=== PATIENT | male | born 1970 | race Caucasian/White ===

== ENCOUNTER 2017-07-18 06:01 | Day surgery (SDC) | payer OTHER ==
[2017-07-18] MEDS ORDERED: DIPRIVAN 200 MG/20 ML IV ONE (06:02)
[2017-07-18] MEDS ORDERED: Lactated Ringers 1,000 ML IV SCH (06:30)
--- NOTE | 2017-07-18 07:50 | OP ---
SURGERY DATE/TIME: 07/18/2017 0700 PREOPERATIVE DIAGNOSES: 1) Anemia. 2) Heme-positive stool. POSTOPERATIVE DIAGNOSES: 1) Unable to do EGD due to the patient's inability to open his mouth wide enough to put the bite block in. 2) Mild diverticula. 3) Hemorrhoids. 4) Partial right hemicolectomy. 5) Normal colon otherwise. PROCEDURES: 1) EGD. 2) Colonoscopy. SURGEON: Dr. Gan. ANESTHESIA: MAC. Medications given by anesthesia department. HISTORY: The patient appraised of the risks of the procedure including the risk of perforation, phlebitis, untoward reaction to medication, bleeding and missed lesions. The patient verbalized his understanding and desired to have the procedure performed. DESCRIPTION OF PROCEDURE: The patient was given the medications by the anesthesia department. He had continuous pulse oximetry, ECG monitoring, intermittent blood pressure monitoring and tidal CO2 monitoring during the examination. He was placed in the left lateral decubitus position. He was unable to open his mouth wide enough to put the bite block in when he was awake and after sedating we were unable to open his mouth wide enough to put the bite block in and we therefore could not perform the EGD. Next, a digital rectal examination was performed and revealed normal anal sphincter tone, no masses and normal prostate. The flexible Olympus pediatric colonoscope was used to intubate the rectum. A view of the colon was developed sequentially to the right colon. There was the previous surgery which appeared to be partial right hemicolectomy. There was noted to be a few scattered sigmoid diverticula. There were noted to be internal hemorrhoids that were not actively bleeding. Otherwise the mucosa of the colon appeared to be normal. The scope was withdrawn from the patient who tolerated the procedure well and was sent back to OP recovery in good condition. The prep was noted to be fair to good.
[2017-07-18 09:39] VITALS: BP 140/92; PULSE 86
[2017-07-18 10:27] VITALS: O2SAT 97
--- NOTE | 2017-07-18 11:23 | XRAY ---
Exam: Double contrast upper GI exam from 07/18/2017. Total fluoroscopy time: 2.9 minutes. Comparison: None. Indication: Unsuccessful EGD, gastritis, possible ulcer, blood in stools. Gives history of prior colon problem many years ago with partial colon resection. Findings: The preliminary top bottom attaching machine operator film of the abdomen reveals an unremarkable bowel gas pattern. No organomegaly or suspicious abdominal calcifications are seen. The psoas muscle margins appear unremarkable bilaterally. The bones appear grossly intact. The patient was given effervescent gas granules with a small amount of water followed by high-density barium in the upright AP and LPO projections. The thoracic esophagus revealed a normal diameter, contour, and mucosal pattern. Later in the exam, WOODSON recumbent drinking views were obtained of the thoracic esophagus with thin liquid barium. The primary wave of esophageal motility appeared unremarkable. Again, the thoracic esophageal contour and caliber appeared unremarkable. I do not see any evidence of hiatal hernia or Schatzki's ring. The stomach appeared of average size. Gastric peristalsis was identified. There was no delay in gastric emptying. No gastric mass or ulcer is seen. The duodenal bulb is directed somewhat posteriorly. However, it distends well revealing no ulcer. The remainder of the duodenal sweep revealed a normal mucosal pattern. The third portion of the duodenum does cross the midline from right to left, but the ligament of Treitz appears relatively low and most of the jejunal small bowel loops beyond this are seen near the mid abdomen and within the right hemiabdomen. 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 Impression: 1. The site of the ligament of Treitz appears relatively low with respect to the proximal duodenum. Furthermore, most of the jejunal small bowel loops beyond this lie within the midabdomen and right hemiabdomen. 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 2. The remainder of the esophagus, stomach, duodenal bulb, and duodenal sweep appeared unremarkable. I saw no evidence of hiatal hernia, gastroesophageal reflux, or peptic ulcer disease.
== END 2017-07-18 10:20 | disposition home or self-care (01) ==
LOC: SDC 06:01
PROVIDERS: ATTEND Family Medicine
DX: D64.9 Anemia, unspecified (principal); R19.5 Other fecal abnormalities; K57.90 Diverticulosis of intestine, part unspecified, without perforation or abscess without bleeding; K64.4 Residual hemorrhoidal skin tags; K64.8 Other hemorrhoids; Z90.49 Acquired absence of other specified parts of digestive tract
CPT/HCPCS: 74246; J2704

== ENCOUNTER 2022-06-04 21:07 | Observation (INO) | payer MEDICARE ==
[2022-06-04] MEDS ORDERED: PROVENTIL Solution 2.5 MG/0.5 ML IH ONE ×2 (21:12→21:35)
[2022-06-04] MEDS ORDERED: Sodium Chloride 3 ML UD NEBULES IH ONE (21:12)
[2022-06-04] MEDS ORDERED: solu-MEDROL 125 MG, Sterile H2O 10 ml 2 ML IV ONE ×2 (21:15)
[2022-06-04] MEDS ORDERED: BRETHINE 1 MG/ML SQ ONE (21:16)
[2022-06-04] MEDS ORDERED: Sterile H2O 10 ml IJ ONE (21:19)
[2022-06-04] MEDS ORDERED: solu-MEDROL ONE (21:20)
[2022-06-04] MEDS ORDERED: BRETHINE 1 MG/ML ONE (21:20)
[2022-06-04 21:44] LABS: Hematocrit 49.2 % (42-50); Hemoglobin 15.9 g/dL (12.5-18.0); Mean Cell Volume 97.4 fL (78-100); Mean Corpuscular Hemoglobin 31.5 pg (26-32); Mean Corpuscular Hgb Concent. 32.3 g/dL (32-36); Mean Platelet Volume 10.6 fL (7.5-11.0); Platelet Count 289 x10^3/uL (150-450); Red Blood Count 5.05 x10^6/uL (4.1-5.6); Red Cell Distribution Width 13.3 % (11.5-14.0)
[2022-06-04] MEDS ORDERED: Sodium Chloride 3 ML UD NEBULES IH SCH (21:45)
[2022-06-04 21:50] LABS: ALBUMIN 4.9 g/dL (3.5-5.0); ALKALINE PHOSPHATASE 105 U/L (38-126); ANION GAP 18.1 MEQ/L (5-15); BLOOD UREA NITROGEN 14 mg/dL (9-20); CHLORIDE 102 mmol/L (98-107); Calcium 9.9 mg/dL (8.4-10.2); Carbon Dioxide 25 mmol/L (22-30); Creatinine 1 1.16 mg/dL (0.66-1.25); EST GLOMERULAR FILTRATION RATE > 60.0 ML/MIN; Glucose 155 mg/dL (74-106); Potassium 4.7 mmol/L (3.5-5.1); SGOT/AST 36 U/L (17-59); SGPT/ALT 22 U/L (0-50); SODIUM 140 mmol/L (137-145); Total Protein 9.3 g/dL (6.3-8.2)
[2022-06-04 21:53] LABS: D-DIMER QUANTITATIVE 0.25 mg/L (0.0-0.50); PROTIME 10.9 SECONDS (9.4-12.5); PTT 28.1 SECONDS (25.1-36.5); White Blood Count 25.5 x10^3/uL (4.0-10.5)
[2022-06-04 22:02] LABS: NT PRO BNPII 107 pg/mL (<300); TROPONIN < 0.012 ng/mL (0.000-0.034)
[2022-06-04 22:34] LABS: INFLUENZA A NEGATIVE (NEGATIVE); INFLUENZA B NEGATIVE (NEGATIVE); RESPIRATORY SYNCTIAL VIRUS NEGATIVE (NEGATIVE); SARS-CoV-2 Xpert Express NEGATIVE (NEGATIVE)
[2022-06-04] MEDS ORDERED: Sodium Chloride 0.9% 1000 ML 1,000 ML IV STA (22:57)
--- NOTE | 2022-06-04 23:00 | ERPHSYRPT ---
- History of Present Illness Source: patient, family Exam Limitations: clinical condition Patient Subjective Stated Complaint: pt has been increasingly short of breath today with audible wheezes. Triage Nursing Assessment: pt alert and oriented, answers questions approp with single word answers. pt back to room per wheelchair, transfers to stretcher with assist of 1. pt short of breath with accessory muscle use noted. lung sounds coarse bilat with insp and exp wheezes noted, skin warm and dry Physician History: 52 yo WM w h/o Asthma since 21 presents w dyspnea x 1 day. Pt w sats of 75% on RA upon arrival. He saw his PCP today and was prescribed prednisone which he has not filled but took 20mg today from old Rx. He denies cough/coryza/ fever/melena/hematochezia/N/V but does have some diarrhea. Timing/Duration: yesterday Activities at Onset: rest Severity of Dyspnea-Max: severe Severity of Dyspnea-Current: severe Possible Cause: occasional episodes Modifying Factors: Improves With: activity, oxygen Associated Symptoms: denies symptoms Allergies/Adverse Reactions: Penicillins Allergy (Mild, Verified 06/04/22 21:31) Rash Home Medications: Levothyroxine Sodium 150 Mcg [Synthroid 150 Mcg] 150 mcg PO DAILY 08/02/13 [History] Ferrous Sulfate [Iron] 325 mg PO DAILY 07/15/17 [History] Folic Acid 1 mg [Folate 1 mg] 1 mg PO DAILY 07/15/17 [History] Lisinopril 10 mg [Zestril 10 MG] 10 mg PO DAILY 07/15/17 [History] Hx Tetanus, Diphtheria Vaccination/Date Given: Yes Hx Influenza Vaccination/Date Given: Yes Hx Pneumococcal Vaccination/Date Given: No Immunizations Up to Date: Yes Travel Risk - International Travel Have you traveled outside of the country in past 3 weeks: No - Coronavirus Screening Are you exhibiting any of the following symptoms?: No Close contact with a COVID-19 positive Pt in past 14-21 Days: No - Vaccine Status Have you recieved a Covid-19 vaccination: Yes [employer] Damage Clerk: Moderna - Vaccination Dates Date of 2cond Vaccination (if applicable): 2020 - Review of Systems Constitutional: No Symptoms Eyes: No Symptoms Ears, Nose, & Throat: No Symptoms Respiratory: No Symptoms, Dyspnea Cardiac: No Symptoms Abdominal/Gastrointestinal: No Symptoms Genitourinary Symptoms: No Symptoms Musculoskeletal: No Symptoms Skin: No Symptoms Neurological: No Symptoms Psychological: No Symptoms Endocrine: No Symptoms Hematologic/Lymphatic: No Symptoms Immunological/Allergic: No Symptoms - Past Medical History Pertinent Past Medical History: Yes Neurological History: No Pertinent History ENT History: No Pertinent History Cardiac History: Hypertension Respiratory History: No Pertinent History Endocrine Medical History: Hyperthyroidism Musculoskeletal History: No Pertinent History GI Medical History: No Pertinent History, Other History: No Pertinent History Psycho-Social History: No Pertinent History Male Reproductive Disorders: No Pertinent History Other Medical History: anemia,hypothroid, psoriatic arthritis - Past Surgical History Past Surgical History: Yes Neuro Surgical History: No Pertinent History Cardiac: No Pertinent History Respiratory: No Pertinent History Gastrointestinal: Colon Resection Genitourinary: No Pertinent History Musculoskeletal: Orthopedic Surgery Male Surgical History: No Pertinent History Other Surgical History: colon surgery r/t blockage at age 6,knee surgery,neck surgery - Social History Smoking Status: Never smoker Exposure to second hand smoke: No Drug Use: none Patient Lives Alone: Yes - Nursing Vital Signs Nursing Vital Signs: Initial Vital Signs Temperature 97.2 F 06/04/22 21:11 Pulse Rate 129 H 06/04/22 21:11 Respiratory Rate 24 06/04/22 21:11 Blood Pressure 148/135 06/04/22 21:11 O2 Sat by Pulse Oximetry 75 L 06/04/22 21:11 Pain Scale Pain Intensity 0 Tachy/Severely hypoxic - Physical Exam General Appearance: severe distress Eye Exam: PERRL/EOMI, eyes nml inspection Ears, Nose, Throat Exam: hearing grossly normal, normal ENT inspection, normal pharynx Neck Exam: normal inspection, non-tender, supple, full range of motion, No Brudzinski, No Kernig's, No meningismus Respiratory Exam: respiratory distress (severe), prolonged expirations, wheezing (Expiratory wheezes all lung lields) Cardiovascular/Chest Exam: tachycardia, No murmur Abdominal/Gastrointestinal Exam: soft, normal bowel sounds, No tenderness Extremity Exam: non-tender, normal range of motion, normal inspection, normal capillary refill Peripheral Pulses Exam: carotid (R): 2+, carotid (L): 2+ Neurologic Exam: alert, oriented x 3, cooperative, electroformer II-XII nml as tested, normal mood/affect, nml cerebellar function, nml station & gait, sensation nml, No motor deficits, No sensory deficit Skin Exam: normal color, warm, dry Lymphatic Exam: No adenopathy SpO2 Interpretation: hypoxic SpO2: 95 O2 Delivery: Oxymask - Course Nursing assessment & vital signs reviewed: Yes EKG Interpreted by Me: RATE (Sinus tach/Normal QT-QTc/Low voltage/Diffuse Twave abnormality/No acute ST segment changes/LAFB) - Radiology Exams Chest X-ray Interpretation: Interpreted by me (Hyperinflated/Nothing acute) Ordered Tests: Active Orders 24 hr Category Date Time Status IV Insertion STAT Care 06/04/22 21:25 Active IV Insertion-2nd Peripheral STAT Care 06/04/22 21:25 Active CHEST 1 VIEW (PORTABLE) Stat Exams 06/04/22 21:37 Taken CHEST WITH CONTRAST [CT] Stat Exams 06/04/22 23:14 Completed ABG [ARTERIAL BLOOD GASES] Stat Lab 06/04/22 23:33 Completed CBC W DIFF Stat Lab 06/04/22 21:39 Completed CMP Stat Lab 06/04/22 21:39 Completed D-DIMER QUANTITATIVE Stat Lab 06/04/22 21:39 Completed Lactic Acid Stat Lab 06/04/22 22:00 Completed Lactic Acid Stat Lab 06/05/22 00:11 Completed Manual Differential NC Stat Lab 06/04/22 21:39 Completed NT PRO BNPII Stat Lab 06/04/22 21:39 Completed PROTIME WITH INR Stat Lab 06/04/22 21:39 Completed PTT Stat Lab 06/04/22 21:39 Completed TROPONIN Q4H Lab 06/04/22 21:39 Completed TROPONIN Q4H Lab 06/05/22 01:45 Ordered TROPONIN Q4H Lab 06/05/22 05:45 Ordered Respiratory Therapy Assessment DAILY RT 06/04/22 21:10 Active Medication Summary Generic Name Dose Route Start Last Admin Trade Name Freq PRN Reason Stop Dose Admin Sodium Chloride 12 ml 06/04/22 21:45 06/04/22 21:40 Sodium Cl For Inhalation 3 Ml Ud Nebule IH 07/04/22 21:44 10 ml UD FABIAN Administration Discontinued Medications Generic Name Dose Route Start Last Admin Trade Name Freq PRN Reason Stop Dose Admin Albuterol Sulfate Confirm 06/04/22 21:12 Albuterol Solution 2.5 Mg/0.5 Ml Ud Solution Administered 06/04/22 21:13 Dose 10 mg IH .STK-MED ONE Albuterol Sulfate 10 mg 06/04/22 21:35 06/04/22 21:40 Albuterol Solution 2.5 Mg/0.5 Ml Ud Solution IH 06/04/22 21:36 10 mg STAT ONE Administration Methylprednisolone Sodium 0 mg 06/04/22 21:15 06/04/22 21:20 Succinate 125 mg/ Sterile IV 06/04/22 21:16 125 mg Water 2 ml STAT ONE Administration Sodium Chloride 1,000 mls @ 999 mls/hr 06/04/22 22:57 06/04/22 23:22 Sodium Chloride 0.9% 1000 Ml IV 06/04/22 23:57 999 mls/hr .Q1H1M STA Administration Sodium Chloride Confirm 06/04/22 23:21 Sodium Chloride 0.9% 1000 Ml Administered 06/04/22 23:22 Dose 1,000 mls @ ud .ROUTE .STK-MED ONE Methylprednisolone Sodium Succinate Confirm 06/04/22 21:20 Methylprednis Sod Succ 125 Mg/2 Ml Vial Administered 06/04/22 21:21 Dose 125 mg .ROUTE .STK-MED ONE Sodium Chloride Confirm 06/04/22 21:12 Sodium Cl For Inhalation 3 Ml Ud Nebule Administered 06/04/22 21:13 Dose 12 ml IH .STK-MED ONE Sterile Water Confirm 06/04/22 21:19 Water For Injection,Sterile 10 Ml Vial Administered 06/04/22 21:20 Dose 10 ml IJ .STK-MED ONE Terbutaline Sulfate 0.25 mg 06/04/22 21:16 06/04/22 21:21 Terbutaline Sulfate 1 Mg/Ml Vial SQ 06/04/22 21:17 0.25 mg STAT ONE Administration Terbutaline Sulfate Confirm 06/04/22 21:20 Terbutaline Sulfate 1 Mg/Ml Vial Administered 06/04/22 21:21 Dose 1 mg .ROUTE .STK-MED ONE Lab/Rad Data: Laboratory Result Diagrams 06/04/22 21:39 06/04/22 21:39 Laboratory Results 06/05/22 06/04/22 06/04/22 Range/Units 00:11 23:33 22:00 WBC (4.0-10.5) x10^3/uL RBC (4.1-5.6) x10^6/uL Hgb (12.5-18.0) g/dL Hct (42-50) % MCV (78-100) fL MCH (26-32) pg MCHC (32-36) g/dL RDW (11.5-14.0) % Plt Count (150-450) x10^3/uL MPV (7.5-11.0) fL Segmented Neutrophils (36.-66.) % Lymphocytes (Manual) (24-44) % Monocytes (Manual) (0.0-12.0) % Eosinophils (Manual) (0.00-3.0) % Basophils (Manual) (0.0-1.0) % Platelet Estimate (NORMAL) RBC Morphology PT (9.4-12.5) SECONDS INR (0.8-3.0) APTT (25.1-36.5) SECONDS D-Dimer (0.0-0.50) mg/L Puncture Site LEFT RADIAL pCO2 44 (35-45) mmHg pO2 120 H (75-100) mmHg Base Excess -2.3 L (-2.0-2.0) O2 Saturation 96.3 (94-100) g/dF ABG pH 7.34 L (7.35-7.45) ABG HCO3 23.7 (22-28) ABG O2 Sat (Measured) 99.2 (95-100) % Irwin Test YES A-a Gradient 253 a/A Ratio 0.32 Hemoglobin 15.8 Carboxyhemoglobin 2.2 (0.0-6.9) % THgb Methemoglobin 0.8 L (1.4-1.5) % Temperature 37.0 C POC O2 Flow Rate 60 % Sodium (137-145) mmol/L Potassium 4.2 (3.5-5.1) mmol/L Chloride (98-107) mmol/L Carbon Dioxide (22-30) mmol/L Anion Gap (5-15) MEQ/L BUN (9-20) mg/dL Creatinine (0.66-1.25) mg/dL Estimated GFR ML/MIN Glucose (74-106) mg/dL Lactic Acid 2.0 2.4 H (0.4-2.0) Calcium (8.4-10.2) mg/dL Total Bilirubin (0.2-1.3) mg/dL AST (17-59) U/L ALT (0-50) U/L Alkaline Phosphatase (38-126) U/L Troponin I (0.000-0.034) ng/mL NT-Pro-B Natriuret Pep (<300) pg/mL Serum Total Protein (6.3-8.2) g/dL Albumin (3.5-5.0) g/dL Influenza Type A Ag (NEGATIVE) Influenza Type B Ag (NEGATIVE) RSV (PCR) (NEGATIVE) SARS-CoV-2 (PCR) (NEGATIVE) 06/04/22 06/04/22 06/04/22 Range/Units 21:50 21:39 21:39 WBC (4.0-10.5) x10^3/uL RBC (4.1-5.6) x10^6/uL Hgb (12.5-18.0) g/dL Hct (42-50) % MCV (78-100) fL MCH (26-32) pg MCHC (32-36) g/dL RDW (11.5-14.0) % Plt Count (150-450) x10^3/uL MPV (7.5-11.0) fL Segmented Neutrophils (36.-66.) % Lymphocytes (Manual) (24-44) % Monocytes (Manual) (0.0-12.0) % Eosinophils (Manual) (0.00-3.0) % Basophils (Manual) (0.0-1.0) % Platelet Estimate (NORMAL) RBC Morphology PT 10.9 (9.4-12.5) SECONDS INR 1.00 (0.8-3.0) APTT 28.1 (25.1-36.5) SECONDS D-Dimer 0.25 (0.0-0.50) mg/L Puncture Site pCO2 (35-45) mmHg pO2 (75-100) mmHg Base Excess (-2.0-2.0) O2 Saturation (94-100) g/dF ABG pH (7.35-7.45) ABG HCO3 (22-28) ABG O2 Sat (Measured) (95-100) % Irwin Test A-a Gradient a/A Ratio Hemoglobin Carboxyhemoglobin (0.0-6.9) % THgb Methemoglobin (1.4-1.5) % Temperature C POC O2 Flow Rate % Sodium (137-145) mmol/L Potassium (3.5-5.1) mmol/L Chloride (98-107) mmol/L Carbon Dioxide (22-30) mmol/L Anion Gap (5-15) MEQ/L BUN (9-20) mg/dL Creatinine (0.66-1.25) mg/dL Estimated GFR ML/MIN Glucose (74-106) mg/dL Lactic Acid (0.4-2.0) Calcium (8.4-10.2) mg/dL Total Bilirubin (0.2-1.3) mg/dL AST (17-59) U/L ALT (0-50) U/L Alkaline Phosphatase (38-126) U/L Troponin I < 0.012 (0.000-0.034) ng/mL NT-Pro-B Natriuret Pep 107 (<300) pg/mL Serum Total Protein (6.3-8.2) g/dL Albumin (3.5-5.0) g/dL Influenza Type A Ag NEGATIVE (NEGATIVE) Influenza Type B Ag NEGATIVE (NEGATIVE) RSV (PCR) NEGATIVE (NEGATIVE) SARS-CoV-2 (PCR) NEGATIVE (NEGATIVE) 06/04/22 06/04/22 Range/Units 21:39 21:39 WBC 25.5 H* (4.0-10.5) x10^3/uL RBC 5.05 (4.1-5.6) x10^6/uL Hgb 15.9 (12.5-18.0) g/dL Hct 49.2 (42-50) % MCV 97.4 (78-100) fL MCH 31.5 (26-32) pg MCHC 32.3 (32-36) g/dL RDW 13.3 (11.5-14.0) % Plt Count 289 (150-450) x10^3/uL MPV 10.6 (7.5-11.0) fL Segmented Neutrophils 75 H (36.-66.) % Lymphocytes (Manual) 3 L (24-44) % Monocytes (Manual) 6 (0.0-12.0) % Eosinophils (Manual) 15 H (0.00-3.0) % Basophils (Manual) 1 (0.0-1.0) % Platelet Estimate NORMAL (NORMAL) RBC Morphology NORMAL PT (9.4-12.5) SECONDS INR (0.8-3.0) APTT (25.1-36.5) SECONDS D-Dimer (0.0-0.50) mg/L Puncture Site pCO2 (35-45) mmHg pO2 (75-100) mmHg Base Excess (-2.0-2.0) O2 Saturation (94-100) g/dF ABG pH (7.35-7.45) ABG HCO3 (22-28) ABG O2 Sat (Measured) (95-100) % Irwin Test A-a Gradient a/A Ratio Hemoglobin Carboxyhemoglobin (0.0-6.9) % THgb Methemoglobin (1.4-1.5) % Temperature C POC O2 Flow Rate % Sodium 140 (137-145) mmol/L Potassium 4.7 (3.5-5.1) mmol/L Chloride 102 (98-107) mmol/L Carbon Dioxide 25 (22-30) mmol/L Anion Gap 18.1 H (5-15) MEQ/L BUN 14 (9-20) mg/dL Creatinine 1.16 (0.66-1.25) mg/dL Estimated GFR > 60.0 ML/MIN Glucose 155 H (74-106) mg/dL Lactic Acid (0.4-2.0) Calcium 9.9 (8.4-10.2) mg/dL Total Bilirubin 1.10 (0.2-1.3) mg/dL AST 36 (17-59) U/L ALT 22 (0-50) U/L Alkaline Phosphatase 105 (38-126) U/L Troponin I (0.000-0.034) ng/mL NT-Pro-B Natriuret Pep (<300) pg/mL Serum Total Protein 9.3 H (6.3-8.2) g/dL Albumin 4.9 (3.5-5.0) g/dL Influenza Type A Ag (NEGATIVE) Influenza Type B Ag (NEGATIVE) RSV (PCR) (NEGATIVE) SARS-CoV-2 (PCR) (NEGATIVE) - Progress Progress Note: 06/05/22 01:29 Nursing note and vital signs reviewed No food or housing insecurities noted Pt arrived w RA sat of 75% Pt immediately placed on 100% O2 FM w improvement in sats and IV access started Continuous Albuterol neb started 125mg IV Solumedrol 0.25mg IV Terbutaline CTA of chest negative Additional history per sister and mother Obs admit per scott Mullins 1gm IV Rocephin 2gms IV MagSO4 06/05/22 01:30 06/05/22 01:44 06/05/22 01:45 Antibiotics given: Yes Discussed with DrElvia: Other Counseled pt/family regarding: lab results, diagnosis, rad results Medical Desision Making - Discussion of managment Care discussed with:: hospitalist Reviewed:: Test results, Need for additional workup Agreed on:: Treatment plan, place in obs Will see patient: in hospital - Diagnostic Testing Diagnostic test were ordered, analyzed, and reviewed by me: Yes Radiological Interpretation: Reviewed by me, Teleradiologist Report - Risk of complications The pt has a high risk of morbidity or mortality based on: Drug therapy requiring intensive monitoring for toxicity - Departure Departure Disposition: Observation Clinical Impression: Status asthmaticus Condition: Stable Critical Care Time: Yes Critical Care Time(excluding separately billable procedures): Critical 30-74 mins Referrals: VIC THOMSON [Primary Care Provider] - Follow up/PCP as directed
[2022-06-04 23:01] LABS: Basophil 1 % (0.0-1.0); Eosinophil 15 % (0.00-3.0); Lymphocytes 3 % (24-44); Monocyte 6 % (0.0-12.0); Neutrophils 75 % (36.-66.); Platelet Estimate NORMAL (NORMAL); Total Cells Counted 100
[2022-06-04] MEDS ORDERED: Sodium Chloride 0.9% 1000 ML 1,000 ML ONE (23:21)
[2022-06-04 23:39] LABS: A-aADO2 253; ABG HEMOGLOBIN 15.8; ABG POTASSIUM 4.2 (3.5-5.1); ARTERIAL BLD GAS O2 SATURATION 99.2 % (95-100); ARTERIAL BLOOD GAS BASE EXCESS -2.3 (-2.0-2.0); ARTERIAL BLOOD GAS FIO2 60 %; ARTERIAL BLOOD GAS PCO2 44 mmHg (35-45); ARTERIAL BLOOD GAS PO2 120 mmHg (75-100); ARTERIAL BLOOD GAS pH 7.34 (7.35-7.45); CARBOXYHEMOGLOBIN 2.2 % THgb (0.0-6.9); HCO3- 23.7 (22-28); HGB O2 SAT 96.3 g/dF (94-100); Methhemoglobin 0.8 % (1.4-1.5); paO2 pAO1 0.32
[2022-06-04 23:40] LABS: ABG SITE LEFT RADIAL; ALLEN TEST OK? YES
--- NOTE | 2022-06-05 01:14 | XRAY ---
CLINICAL HISTORY:Pulmonary embolism; COMPARISON:None; TECHNIQUES:Postcontrast CT pulmonary angiography; FINDINGS: Normal main pulmonary artery and the left and right main pulmonary trunks. No detected pulmonary embolism. Heart size is normal, and there is no pericardial effusion. Clear both lung nolasco. IMPRESSION: No evidence of pulmonary embolism. Electronically Signed by: Josette Engle MD. ( 06/05/2022 00:08:09 [employer])
[2022-06-05] MEDS ORDERED: MAGNESIUM SULF 2 G/50 ML BAG 2 GM/50 ML PIGGYBACK IV ONE ×2 (01:29→01:38)
[2022-06-05] MEDS ORDERED: ROCEPHIN 1 Gm-D5w 50 ml Bag** 1 G/50 ML IVPB IV STA (01:37)
[2022-06-05] MEDS ORDERED: ROCEPHIN 1 Gm-D5w 50 ml Bag** 1 G/50 ML IVPB IV ONE (01:38)
[2022-06-05] MEDS ORDERED: Zofran 4 MG/2 ML VIAL IV PRN (01:40)
[2022-06-05] MEDS ORDERED: Sodium Chloride 0.9% 1000 ML 1,000 ML IV SCH (01:45)
[2022-06-05] MEDS: PROVENTIL 2.5 MG/3 ML NEB IH SCH ×6 (03:20→23:07)
[2022-06-05] MEDS ORDERED: VENTOLIN COMMON CANISTER IH PRN (04:01)
[2022-06-05] MEDS ORDERED: TYLENOL 325 MG PO PRN (04:18)
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
[2022-06-05 05:12] LABS: Absolute Neutrophil Ct (ANC) 16.68 x10^3/uL (1.4-6.9); BASOPHIL % 0.6 % (0.0-0.4); Basophil (Absolute #) 0.11 x10^3/uL (0-0.4); Eosinophil % 0.3 % (0.00-5.0); Eosinophil (Absolute #) 0.05 x10^3/uL (0-0.5); Hematocrit 46.5 % (42-50); Hemoglobin 14.8 g/dL (12.5-18.0); IMMATURE GRAN # 0.15 x10^3u/L (0.00-0.03); IMMATURE GRAN % 0.8 % (0.00-0.4); Lymphocyte (Absolute #) 0.94 x10^3/uL (1.0-4.6); Lymphocytes % 5.2 % (24.0-44.0); Mean Cell Volume 97.1 fL (78-100); Mean Corpuscular Hemoglobin 30.9 pg (26-32); Mean Corpuscular Hgb Concent. 31.8 g/dL (32-36); Monocyte (Absolute #) 0.15 x10^3/uL (0.0-1.3); Monocytes % 0.8 % (0.0-12.0); Neutrophil % 92.3 % (36.0-66.0); Platelet Count 240 x10^3/uL (150-450); Red Blood Count 4.79 x10^6/uL (4.1-5.6); Red Cell Distribution Width 13.1 % (11.5-14.0); White Blood Count 18.1 x10^3/uL (4.0-10.5)
[2022-06-05] MEDS ORDERED: solu-MEDROL ONE (06:05)
[2022-06-05] MEDS ORDERED: Sterile H2O 10 ml IJ ONE (06:05)
[2022-06-05] MEDS: solu-MEDROL 125 MG, Sterile H2O 10 ml 2 ML IV SCH ×6 (06:33→17:08)
[2022-06-05] MEDS: PROVENTIL 2.5 MG/3 ML NEB IH PRN ×2 (08:45→13:30)
[2022-06-05] MEDS: Zestril 10 MG PO SCH (08:46)
[2022-06-05] MEDS: ENOXAPARIN SODIUM SQ SCH (08:46)
[2022-06-05] MEDS: CLARITIN 10 MG PO SCH (08:46)
--- NOTE | 2022-06-05 09:13 | XRAY ---
Indication: Dyspnea. Comparison: January 21, 2022 Portable chest remains hyperinflated and clear. Heart not enlarged. Bony thorax intact. No new/acute findings.
[2022-06-05] MEDS ORDERED: PROTONIX 40 MG IV IV SCH (10:00)
[2022-06-05] MEDS ORDERED: ADALIMUMAB 40 MG/0.4 ML SQ SCH (13:45)
[2022-06-05] MEDS ORDERED: TREXALL 2.5 MG PO PRN (13:45)
[2022-06-05] MEDS ORDERED: MEDICATION INTERVENTION MC SCH (14:00)
[2022-06-05] MEDS: BACIGUENT 30 GM TOP SCH ×2 (14:33→21:55)
[2022-06-05] MEDS: KENALOG 0.1% OINTMENT TP SCH ×2 (15:04→21:56)
--- NOTE | 2022-06-05 18:28 | PCM.NOTE ---
Date and Time: 06/05/221826 Subjective Assessment: still short of breath, requires 5 l of oxygen - Review of Systems Constitutional: No Fever, No Chills Eyes: No Symptoms Ears, Nose, & Throat: No Symptoms Respiratory: Orthopnea, Short Of Breath, Wheezing, No Cough Cardiac: No Chest Pain, No Edema, No Syncope Abdominal/Gastrointestinal: No Abdominal Pain, No Nausea, No Vomiting, No Diarrhea Genitourinary Symptoms: No Dysuria Musculoskeletal: No Back Pain, No Neck Pain Skin: No Rash Neurological: No Dizziness, No Focal Weakness, No Sensory Changes Psychological: No Symptoms Endocrine: No Symptoms Hematologic/Lymphatic: No Symptoms Immunological/Allergic: No Symptoms Objective Exam General Appearance: no apparent distress, alert Neurologic Exam: alert, oriented x 3, cooperative, normal mood/affect, nml cerebellar function, sensation nml, No motor deficits Skin Exam: normal color, warm, dry Eye Exam: PERRL, EOMI, eyes nml inspection Ears, Nose, Throat Exam: normal ENT inspection, pharynx normal, moist mucous membranes Neck Exam: normal inspection, non-tender, supple, full range of motion Respiratory Exam: diminished breath sounds, wheezing, No respiratory distress Cardiovascular Exam: regular rate/rhythm, normal heart sounds Gastrointestinal/Abdomen Exam: soft, No tenderness, No mass Extremity Exam: normal inspection, normal range of motion Back Exam: normal inspection, normal range of motion, No CVA tenderness, No vertebral tenderness Male Genitalia Exam: deferred Rectal Exam: deferred OBJECTIVE DATA Vital Signs: Vital Signs - 24 hr Temp Pulse Resp BP Pulse Ox 06/05/22 17:45 110 H 95 06/05/22 16:00 98.0 F 120 H 18 143/84 93 L 06/05/22 15:33 111 H 20 92 L 06/05/22 13:34 114 H 22 93 L 06/05/22 11:24 120 H 22 93 L 06/05/22 11:11 98.0 F 120 H 20 139/78 91 L 06/05/22 08:49 111 H 20 96 06/05/22 07:08 95 06/05/22 06:45 117 H 22 95 06/05/22 06:38 98.4 F 104 H 20 151/67 95 06/05/22 03:20 118 H 24 94 L 06/05/22 03:01 96.5 F 123 H 24 129/80 92 L 04/19/23 01:46 95 06/05/22 01:00 120 H 20 129/80 96 06/05/22 00:00 124 H 24 139/96 96 06/04/22 23:32 96 06/04/22 23:00 131 H 24 137/95 95 06/04/22 22:08 133 H 26 H 147/89 95 06/04/22 21:15 130 H 24 97 06/04/22 21:11 97.2 F 129 H 24 148/135 97 Pain Assessment - Last Documented Pain Intensity 0 Pain Scale Used 0-10 Pain Scale Intake and Output: Intake & Output 06/03/22 06/04/22 06/05/22 06/06/22 11:59 11:59 11:59 11:59 Intake Total 480 840 Balance 480 840 Weight 87 kg Lab Results: Lab Results-Last 24 Hours 06/04/22 06/04/22 06/04/22 Range/Units 21:39 21:39 21:39 WBC 25.5 H* (4.0-10.5) x10^3/uL RBC 5.05 (4.1-5.6) x10^6/uL Hgb 15.9 (12.5-18.0) g/dL Hct 49.2 (42-50) % MCV 97.4 (78-100) fL MCH 31.5 (26-32) pg MCHC 32.3 (32-36) g/dL RDW 13.3 (11.5-14.0) % Plt Count 289 (150-450) x10^3/uL MPV 10.6 (7.5-11.0) fL Gran % (36.0-66.0) % Immature Gran % (Auto) (0.00-0.4) % Nucleat RBC Rel Count (0.00-0.1) % Eos # (Auto) (0-0.5) x10^3/uL Immature Gran # (Auto) (0.00-0.03) x10^3u/L Absolute Lymphs (auto) (1.0-4.6) x10^3/uL Absolute Monos (auto) (0.0-1.3) x10^3/uL Absolute Nucleated RBC (0.00-0.01) x10^3u/L Lymphocytes % (24.0-44.0) % Monocytes % (0.0-12.0) % Eosinophils % (0.00-5.0) % Basophils % (0.0-0.4) % Absolute Granulocytes (1.4-6.9) x10^3/uL Segmented Neutrophils 75 H (36.-66.) % Lymphocytes (Manual) 3 L (24-44) % Monocytes (Manual) 6 (0.0-12.0) % Eosinophils (Manual) 15 H (0.00-3.0) % Basophils (Manual) 1 (0.0-1.0) % Basophils # (0-0.4) x10^3/uL Platelet Estimate NORMAL (NORMAL) RBC Morphology NORMAL PT 10.9 (9.4-12.5) SECONDS INR 1.00 (0.8-3.0) APTT 28.1 (25.1-36.5) SECONDS D-Dimer 0.25 (0.0-0.50) mg/L Puncture Site pCO2 (35-45) mmHg pO2 (75-100) mmHg Base Excess (-2.0-2.0) O2 Saturation (94-100) g/dF ABG pH (7.35-7.45) ABG HCO3 (22-28) ABG O2 Sat (Measured) (95-100) % Irwin Test A-a Gradient a/A Ratio Hemoglobin Carboxyhemoglobin (0.0-6.9) % THgb Methemoglobin (1.4-1.5) % Temperature C POC O2 Flow Rate % Sodium 140 (137-145) mmol/L Potassium 4.7 (3.5-5.1) mmol/L Chloride 102 (98-107) mmol/L Carbon Dioxide 25 (22-30) mmol/L Anion Gap 18.1 H (5-15) MEQ/L BUN 14 (9-20) mg/dL Creatinine 1.16 (0.66-1.25) mg/dL Estimated GFR > 60.0 ML/MIN Glucose 155 H (74-106) mg/dL Lactic Acid (0.4-2.0) Calcium 9.9 (8.4-10.2) mg/dL Total Bilirubin 1.10 (0.2-1.3) mg/dL AST 36 (17-59) U/L ALT 22 (0-50) U/L Alkaline Phosphatase 105 (38-126) U/L Troponin I (0.000-0.034) ng/mL NT-Pro-B Natriuret Pep (<300) pg/mL Serum Total Protein 9.3 H (6.3-8.2) g/dL Albumin 4.9 (3.5-5.0) g/dL Influenza Type A Ag (NEGATIVE) Influenza Type B Ag (NEGATIVE) RSV (PCR) (NEGATIVE) SARS-CoV-2 (PCR) (NEGATIVE) 06/04/22 06/04/22 06/04/22 Range/Units 21:39 21:50 22:00 WBC (4.0-10.5) x10^3/uL RBC (4.1-5.6) x10^6/uL Hgb (12.5-18.0) g/dL Hct (42-50) % MCV (78-100) fL MCH (26-32) pg MCHC (32-36) g/dL RDW (11.5-14.0) % Plt Count (150-450) x10^3/uL MPV (7.5-11.0) fL Gran % (36.0-66.0) % Immature Gran % (Auto) (0.00-0.4) % Nucleat RBC Rel Count (0.00-0.1) % Eos # (Auto) (0-0.5) x10^3/uL Immature Gran # (Auto) (0.00-0.03) x10^3u/L Absolute Lymphs (auto) (1.0-4.6) x10^3/uL Absolute Monos (auto) (0.0-1.3) x10^3/uL Absolute Nucleated RBC (0.00-0.01) x10^3u/L Lymphocytes % (24.0-44.0) % Monocytes % (0.0-12.0) % Eosinophils % (0.00-5.0) % Basophils % (0.0-0.4) % Absolute Granulocytes (1.4-6.9) x10^3/uL Segmented Neutrophils (36.-66.) % Lymphocytes (Manual) (24-44) % Monocytes (Manual) (0.0-12.0) % Eosinophils (Manual) (0.00-3.0) % Basophils (Manual) (0.0-1.0) % Basophils # (0-0.4) x10^3/uL Platelet Estimate (NORMAL) RBC Morphology PT (9.4-12.5) SECONDS INR (0.8-3.0) APTT (25.1-36.5) SECONDS D-Dimer (0.0-0.50) mg/L Puncture Site pCO2 (35-45) mmHg pO2 (75-100) mmHg Base Excess (-2.0-2.0) O2 Saturation (94-100) g/dF ABG pH (7.35-7.45) ABG HCO3 (22-28) ABG O2 Sat (Measured) (95-100) % Irwin Test A-a Gradient a/A Ratio Hemoglobin Carboxyhemoglobin (0.0-6.9) % THgb Methemoglobin (1.4-1.5) % Temperature C POC O2 Flow Rate % Sodium (137-145) mmol/L Potassium (3.5-5.1) mmol/L Chloride (98-107) mmol/L Carbon Dioxide (22-30) mmol/L Anion Gap (5-15) MEQ/L BUN (9-20) mg/dL Creatinine (0.66-1.25) mg/dL Estimated GFR ML/MIN Glucose (74-106) mg/dL Lactic Acid 2.4 H (0.4-2.0) Calcium (8.4-10.2) mg/dL Total Bilirubin (0.2-1.3) mg/dL AST (17-59) U/L ALT (0-50) U/L Alkaline Phosphatase (38-126) U/L Troponin I < 0.012 (0.000-0.034) ng/mL NT-Pro-B Natriuret Pep 107 (<300) pg/mL Serum Total Protein (6.3-8.2) g/dL Albumin (3.5-5.0) g/dL Influenza Type A Ag NEGATIVE (NEGATIVE) Influenza Type B Ag NEGATIVE (NEGATIVE) RSV (PCR) NEGATIVE (NEGATIVE) SARS-CoV-2 (PCR) NEGATIVE (NEGATIVE) 06/04/22 06/05/22 06/05/22 Range/Units 23:33 00:00 00:11 WBC (4.0-10.5) x10^3/uL RBC (4.1-5.6) x10^6/uL Hgb (12.5-18.0) g/dL Hct (42-50) % MCV (78-100) fL MCH (26-32) pg MCHC (32-36) g/dL RDW (11.5-14.0) % Plt Count (150-450) x10^3/uL MPV (7.5-11.0) fL Gran % (36.0-66.0) % Immature Gran % (Auto) (0.00-0.4) % Nucleat RBC Rel Count (0.00-0.1) % Eos # (Auto) (0-0.5) x10^3/uL Immature Gran # (Auto) (0.00-0.03) x10^3u/L Absolute Lymphs (auto) (1.0-4.6) x10^3/uL Absolute Monos (auto) (0.0-1.3) x10^3/uL Absolute Nucleated RBC (0.00-0.01) x10^3u/L Lymphocytes % (24.0-44.0) % Monocytes % (0.0-12.0) % Eosinophils % (0.00-5.0) % Basophils % (0.0-0.4) % Absolute Granulocytes (1.4-6.9) x10^3/uL Segmented Neutrophils (36.-66.) % Lymphocytes (Manual) (24-44) % Monocytes (Manual) (0.0-12.0) % Eosinophils (Manual) (0.00-3.0) % Basophils (Manual) (0.0-1.0) % Basophils # (0-0.4) x10^3/uL Platelet Estimate (NORMAL) RBC Morphology PT (9.4-12.5) SECONDS INR (0.8-3.0) APTT (25.1-36.5) SECONDS D-Dimer (0.0-0.50) mg/L Puncture Site LEFT RADIAL pCO2 44 (35-45) mmHg pO2 120 H (75-100) mmHg Base Excess -2.3 L (-2.0-2.0) O2 Saturation 96.3 (94-100) g/dF ABG pH 7.34 L (7.35-7.45) ABG HCO3 23.7 (22-28) ABG O2 Sat (Measured) 99.2 (95-100) % Irwin Test YES A-a Gradient 253 a/A Ratio 0.32 Hemoglobin 15.8 Carboxyhemoglobin 2.2 (0.0-6.9) % THgb Methemoglobin 0.8 L (1.4-1.5) % Temperature 37.0 C POC O2 Flow Rate 60 % Sodium (137-145) mmol/L Potassium 4.2 (3.5-5.1) mmol/L Chloride (98-107) mmol/L Carbon Dioxide (22-30) mmol/L Anion Gap (5-15) MEQ/L BUN (9-20) mg/dL Creatinine (0.66-1.25) mg/dL Estimated GFR ML/MIN Glucose (74-106) mg/dL Lactic Acid 2.0 (0.4-2.0) Calcium (8.4-10.2) mg/dL Total Bilirubin (0.2-1.3) mg/dL AST (17-59) U/L ALT (0-50) U/L Alkaline Phosphatase (38-126) U/L Troponin I < 0.012 (0.000-0.034) ng/mL NT-Pro-B Natriuret Pep (<300) pg/mL Serum Total Protein (6.3-8.2) g/dL Albumin (3.5-5.0) g/dL Influenza Type A Ag (NEGATIVE) Influenza Type B Ag (NEGATIVE) RSV (PCR) (NEGATIVE) SARS-CoV-2 (PCR) (NEGATIVE) 06/05/22 06/05/22 Range/Units 05:04 05:10 WBC 18.1 H (4.0-10.5) x10^3/uL RBC 4.79 (4.1-5.6) x10^6/uL Hgb 14.8 (12.5-18.0) g/dL Hct 46.5 (42-50) % MCV 97.1 (78-100) fL MCH 30.9 (26-32) pg MCHC 31.8 L (32-36) g/dL RDW 13.1 (11.5-14.0) % Plt Count 240 (150-450) x10^3/uL MPV 10.0 (7.5-11.0) fL Gran % 92.3 H (36.0-66.0) % Immature Gran % (Auto) 0.8 H (0.00-0.4) % Nucleat RBC Rel Count 0.0 (0.00-0.1) % Eos # (Auto) 0.05 (0-0.5) x10^3/uL Immature Gran # (Auto) 0.15 H (0.00-0.03) x10^3u/L Absolute Lymphs (auto) 0.94 L (1.0-4.6) x10^3/uL Absolute Monos (auto) 0.15 (0.0-1.3) x10^3/uL Absolute Nucleated RBC 0.00 (0.00-0.01) x10^3u/L Lymphocytes % 5.2 L (24.0-44.0) % Monocytes % 0.8 (0.0-12.0) % Eosinophils % 0.3 (0.00-5.0) % Basophils % 0.6 (0.0-0.4) % Absolute Granulocytes 16.68 H (1.4-6.9) x10^3/uL Segmented Neutrophils (36.-66.) % Lymphocytes (Manual) (24-44) % Monocytes (Manual) (0.0-12.0) % Eosinophils (Manual) (0.00-3.0) % Basophils (Manual) (0.0-1.0) % Basophils # 0.11 (0-0.4) x10^3/uL Platelet Estimate (NORMAL) RBC Morphology PT (9.4-12.5) SECONDS INR (0.8-3.0) APTT (25.1-36.5) SECONDS D-Dimer (0.0-0.50) mg/L Puncture Site pCO2 (35-45) mmHg pO2 (75-100) mmHg Base Excess (-2.0-2.0) O2 Saturation (94-100) g/dF ABG pH (7.35-7.45) ABG HCO3 (22-28) ABG O2 Sat (Measured) (95-100) % Irwin Test A-a Gradient a/A Ratio Hemoglobin Carboxyhemoglobin (0.0-6.9) % THgb Methemoglobin (1.4-1.5) % Temperature C POC O2 Flow Rate % Sodium (137-145) mmol/L Potassium (3.5-5.1) mmol/L Chloride (98-107) mmol/L Carbon Dioxide (22-30) mmol/L Anion Gap (5-15) MEQ/L BUN (9-20) mg/dL Creatinine (0.66-1.25) mg/dL Estimated GFR ML/MIN Glucose (74-106) mg/dL Lactic Acid 1.9 (0.4-2.0) Calcium (8.4-10.2) mg/dL Total Bilirubin (0.2-1.3) mg/dL AST (17-59) U/L ALT (0-50) U/L Alkaline Phosphatase (38-126) U/L Troponin I (0.000-0.034) ng/mL NT-Pro-B Natriuret Pep (<300) pg/mL Serum Total Protein (6.3-8.2) g/dL Albumin (3.5-5.0) g/dL Influenza Type A Ag (NEGATIVE) Influenza Type B Ag (NEGATIVE) RSV (PCR) (NEGATIVE) SARS-CoV-2 (PCR) (NEGATIVE) Radiology Exams: Radiology Procedures Category Date Time Status CHEST 1 VIEW (PORTABLE) Stat Exams 06/04/22 21:37 Completed CHEST WITH CONTRAST [CT] Stat Exams 06/04/22 23:14 Completed Multi-Disciplinary Progress Notes: Multi-Disciplinary Progress Notes 06/05/22 00:59 Respiratory Note by David Lucio PT SATS WERE 97% ON 10LPM OXYMASK, HR 125, AND RR 22. Initialized on 06/05/22 00:59 - END OF NOTE Assessment/Plan (1) Status asthmaticus Current Visit: Yes Status: Acute Qualifiers: Asthma severity: moderate Assessment & Plan: Chief Complaint Diagnosis status asthmaticus Admission Date Date 06/05/22 Allergies Allergy/AdvReac Type Severity Reaction Status Date / Time Penicillins Allergy Mild Rash Verified 06/04/22 21:31 Vital Signs (Last 24 hours) Temp Pulse Resp BP Pulse Ox 06/05/22 17:45 110 H 95 06/05/22 16:00 98.0 F 120 H 18 143/84 93 L 06/05/22 15:33 111 H 20 92 L 06/05/22 13:34 114 H 22 93 L 06/05/22 11:24 120 H 22 93 L 06/05/22 11:11 98.0 F 120 H 20 139/78 91 L 06/05/22 08:49 111 H 20 96 06/05/22 07:08 95 06/05/22 06:45 117 H 22 95 06/05/22 06:38 98.4 F 104 H 20 151/67 95 06/05/22 03:20 118 H 24 94 L 06/05/22 03:01 96.5 F 123 H 24 129/80 92 L 06/05/22 01:46 95 06/05/22 01:00 120 H 20 129/80 96 06/05/22 00:00 124 H 24 139/96 96 06/04/22 23:32 96 06/04/22 23:00 131 H 24 137/95 95 06/04/22 22:08 133 H 26 H 147/89 95 06/04/22 21:15 130 H 24 97 06/04/22 21:11 97.2 F 129 H 24 148/135 97 Home Medications Medication Instructions Recorded Confirmed Last Taken Type Adalimumab [Humira Pen] 40 mg SQ UD 06/05/22 06/05/22 Unknown History Albuterol Sulfate [Albuterol 2 puffs IH Q4-6HPRN PRN 06/05/22 06/05/22 Unknown History Sulfate Hfa] Bacitracin Zinc 1 applic TOP BID 06/05/22 06/05/22 Unknown History Cetirizine HCl 10 mg PO DAILY 06/05/22 06/05/22 Unknown History Clobetasol Propionate Oint 1 gm TOP BID 06/05/22 06/05/22 Unknown History [Temovate 0.05% OINTMENT] Methotrexate Sodium 2.5 mg 6 tab PO WEEKLY 06/05/22 06/05/22 Unknown History [Trexall 2.5 mg] Current Medications Generic Name Dose Route Start Last Admin Trade Name Freq PRN Reason Stop Dose Admin Acetaminophen 650 mg 06/05/22 04:18 06/05/22 04:53 Acetaminophen 325 Mg Tablet PO 07/05/22 04:17 650 mg Q6H PRN PRN Administration PAIN AND/OR FEVER Albuterol Sulfate 2.5 mg 06/05/22 03:00 06/05/22 17:45 Albuterol Sulfate 2.5 Mg/3 Ml [facility] 07/05/22 02:59 2.5 mg Q4HRT FABIAN Administration Albuterol Sulfate 4 puff 06/05/22 04:01 Albuterol Common Canister Inhaler 07/05/22 04:00 Q4H PRN PRN SHORTNESS OF BREATH/WHEEZING Albuterol Sulfate 2.5 mg 06/05/22 08:48 06/05/22 13:30 Albuterol Sulfate 2.5 Mg/3 Ml [facility] 07/05/22 08:47 2.5 mg Q2H PRN PRN Administration SHORTNESS OF BREATH/WHEEZING Bacitracin Zinc 0 gm 06/05/22 14:00 06/05/22 14:33 Bacitracin Zinc 28 Gm Tube TOP 07/05/22 13:59 1 gm BID FABIAN Administration Methylprednisolone Sodium 0 mg 06/05/22 06:00 06/05/22 17:08 Succinate 125 mg/ Sterile IV 07/05/22 05:59 125 mg Water 2 ml Q6HT FABIAN Administration Enoxaparin Sodium 40 mg 06/05/22 10:00 06/05/22 08:46 Enoxaparin Sodium 40 Mg/0.4 Ml Syringe SQ 07/05/22 09:59 40 mg DAILY FABIAN Administration Lisinopril 10 mg 06/05/22 10:00 06/05/22 08:46 Lisinopril 10 Mg Tablet PO 07/05/22 09:59 10 mg DAILY FABIAN Administration Loratadine 10 mg 06/05/22 10:00 06/05/22 08:46 Loratadine 10 Mg Tablet PO 07/05/22 09:59 10 mg DAILY FABIAN Administration Methotrexate 15 mg 06/05/22 13:45 Methotrexate Sodium 2.5 Mg Tablet PO 07/05/22 13:44 WEEKLY PRN Miscellaneous Information 1 each 06/05/22 14:00 Medication Intervention 1 Each Each 07/05/22 13:59 .RN TO CHECK FABIAN Triamcinolone Acetonide 0 gm 06/05/22 14:00 06/05/22 15:04 Triamcinolone Acetonide 15 Gm Oint TP 07/05/22 13:59 1 gm BID FABIAN Administration Discontinued Medications Generic Name Dose Route Start Last Admin Trade Name Ashutosh PRN Reason Stop Dose Admin Albuterol Sulfate Confirm 06/04/22 21:12 Albuterol Solution 2.5 Mg/0.5 Ml Ud Solution Administered 06/04/22 21:13 Dose 10 mg IH .STK-MED ONE Albuterol Sulfate 10 mg 06/04/22 21:35 06/04/22 21:40 Albuterol Solution 2.5 Mg/0.5 Ml Ud Solution IH 06/04/22 21:36 10 mg STAT ONE Administration Methylprednisolone Sodium 0 mg 06/04/22 21:15 06/04/22 21:20 Succinate 125 mg/ Sterile IV 06/04/22 21:16 125 mg Water 2 ml STAT ONE Administration Sodium Chloride 1,000 mls @ 999 mls/hr 06/04/22 22:57 06/04/22 23:22 Sodium Chloride 0.9% 1000 Ml IV 06/04/22 23:57 999 mls/hr .Q1H1M STA Administration Sodium Chloride Confirm 06/04/22 23:21 Sodium Chloride 0.9% 1000 Ml Administered 06/04/22 23:22 Dose 1,000 mls @ ud .ROUTE .STK-MED ONE Magnesium Sulfate/Water 2 gm in 50 mls @ 100 mls/hr 06/05/22 01:29 06/05/22 01:42 Magnesium Sulf 2 G/50 Ml Bag IV 06/05/22 01:58 100 mls/hr ONCE ONE 100 mls/hr Administration Ceftriaxone Sodium/Dextrose 1 g in 50 mls @ 100 mls/hr 06/05/22 01:37 0 06/05/22 01:41 Rocephin 1 Gm-D5w 50 Ml Bag IV 06/05/22 02:06 100 mls/hr STAT STA 100 mls/hr Administration Magnesium Sulfate/Water Confirm 06/05/22 01:38 Magnesium Sulf 2 G/50 Ml Bag Administered 06/05/22 01:39 Dose 2 gm in 50 mls @ ud IV .STK-MED ONE Ceftriaxone Sodium/Dextrose Confirm 06/05/22 01:38 Rocephin 1 Gm-D5w 50 Ml Bag Administered 06/05/22 01:39 Dose 1 g in 50 mls @ ud IV .STK-MED ONE Sodium Chloride 1,000 mls @ 100 mls/hr 06/05/22 01:45 Sodium Chloride 0.9% 1000 Ml IV 07/05/22 01:44 .Q10H FABIAN Methylprednisolone Sodium Succinate Confirm 06/04/22 21:20 Methylprednis Sod Succ 125 Mg/2 Ml Vial Administered 06/04/22 21:21 Dose 125 mg .ROUTE .STK-MED ONE Methylprednisolone Sodium Succinate Confirm 06/05/22 06:05 Methylprednis Sod Succ 125 Mg/2 Ml Vial Administered 06/05/22 06:06 Dose 125 mg .ROUTE .STK-MED ONE Ondansetron HCl 4 mg 06/05/22 01:40 Ondansetron Hcl 4 Mg/2 Ml Vial IV 07/05/22 01:39 Q6H PRN PRN NAUSEA/VOMITING Pantoprazole Sodium 40 mg 06/05/22 10:00 Pantoprazole 40 Mg Vial IV 07/05/22 09:59 Q24H10 FABIAN Sodium Chloride Confirm 06/04/22 21:12 Sodium Cl For Inhalation 3 Ml Ud Nebule Administered 06/04/22 21:13 Dose 12 ml IH .STK-MED ONE Sodium Chloride 12 ml 06/04/22 21:45 06/04/22 21:40 Sodium Cl For Inhalation 3 Ml Ud Nebule IH 07/04/22 21:44 10 ml UD FABIAN Administration Sterile Water Confirm 06/04/22 21:19 Water For Injection,Sterile 10 Ml Vial Administered 06/04/22 21:20 Dose 10 ml IJ .STK-MED ONE Sterile Water Confirm 06/05/22 06:05 Water For Injection,Sterile 10 Ml Vial Administered 06/05/22 06:06 Dose 10 ml IJ .STK-MED ONE Terbutaline Sulfate 0.25 mg 06/04/22 21:16 06/04/22 21:21 Terbutaline Sulfate 1 Mg/Ml Vial SQ 06/04/22 21:17 0.25 mg STAT ONE Administration Terbutaline Sulfate Confirm 06/04/22 21:20 Terbutaline Sulfate 1 Mg/Ml Vial Administered 06/04/22 21:21 Dose 1 mg .ROUTE .STK-MED ONE Intake & Output (Last 24 hours) 06/03/22 06/04/22 06/05/22 06/06/22 11:59 11:59 11:59 11:59 Intake Total 480 840 Balance 480 840 Weight 87 kg Laboratory Results (Last 24 hours) 06/05/22 06/05/22 06/05/22 05:10 05:04 00:11 WBC 18.1 H RBC 4.79 Hgb 14.8 Hct 46.5 MCV 97.1 MCH 30.9 MCHC 31.8 L RDW 13.1 Plt Count 240 MPV 10.0 Gran % 92.3 H Immature Gran % (Auto) 0.8 H Nucleat RBC Rel Count 0.0 Eos # (Auto) 0.05 Immature Gran # (Auto) 0.15 H Absolute Lymphs (auto) 0.94 L Absolute Monos (auto) 0.15 Absolute Nucleated RBC 0.00 Lymphocytes % 5.2 L Monocytes % 0.8 Eosinophils % 0.3 Basophils % 0.6 Absolute Granulocytes 16.68 H Segmented Neutrophils Lymphocytes (Manual) Monocytes (Manual) Eosinophils (Manual) Basophils (Manual) Basophils # 0.11 Platelet Estimate RBC Morphology PT INR APTT D-Dimer Puncture Site pCO2 pO2 Base Excess O2 Saturation ABG pH ABG HCO3 ABG O2 Sat (Measured) Irwin Test A-a Gradient a/A Ratio Hemoglobin Carboxyhemoglobin Methemoglobin Temperature POC O2 Flow Rate Sodium Potassium Chloride Carbon Dioxide Anion Gap BUN Creatinine Estimated GFR Glucose Lactic Acid 1.9 2.0 Calcium Total Bilirubin AST ALT Alkaline Phosphatase Troponin I NT-Pro-B Natriuret Pep Serum Total Protein Albumin Influenza Type A Ag Influenza Type B Ag RSV (PCR) SARS-CoV-2 (PCR) 06/05/22 06/04/22 06/04/22 00:00 23:33 22:00 WBC RBC Hgb Hct MCV MCH MCHC RDW Plt Count MPV Gran % Immature Gran % (Auto) Nucleat RBC Rel Count Eos # (Auto) Immature Gran # (Auto) Absolute Lymphs (auto) Absolute Monos (auto) Absolute Nucleated RBC Lymphocytes % Monocytes % Eosinophils % Basophils % Absolute Granulocytes Segmented Neutrophils Lymphocytes (Manual) Monocytes (Manual) Eosinophils (Manual) Basophils (Manual) Basophils # Platelet Estimate RBC Morphology PT INR APTT D-Dimer Puncture Site LEFT RADIAL pCO2 44 pO2 120 H Base Excess -2.3 L O2 Saturation 96.3 ABG pH 7.34 L ABG HCO3 23.7 ABG O2 Sat (Measured) 99.2 Irwin Test YES A-a Gradient 253 a/A Ratio 0.32 Hemoglobin 15.8 Carboxyhemoglobin 2.2 Methemoglobin 0.8 L Temperature 37.0 POC O2 Flow Rate 60 Sodium Potassium 4.2 Chloride Carbon Dioxide Anion Gap BUN Creatinine Estimated GFR Glucose Lactic Acid 2.4 H Calcium Total Bilirubin AST ALT Alkaline Phosphatase Troponin I < 0.012 NT-Pro-B Natriuret Pep Serum Total Protein Albumin Influenza Type A Ag Influenza Type B Ag RSV (PCR) SARS-CoV-2 (PCR) 06/04/22 06/04/22 06/04/22 21:50 21:39 21:39 WBC RBC Hgb Hct MCV MCH MCHC RDW Plt Count MPV Gran % Immature Gran % (Auto) Nucleat RBC Rel Count Eos # (Auto) Immature Gran # (Auto) Absolute Lymphs (auto) Absolute Monos (auto) Absolute Nucleated RBC Lymphocytes % Monocytes % Eosinophils % Basophils % Absolute Granulocytes Segmented Neutrophils Lymphocytes (Manual) Monocytes (Manual) Eosinophils (Manual) Basophils (Manual) Basophils # Platelet Estimate RBC Morphology PT 10.9 INR 1.00 APTT 28.1 D-Dimer 0.25 Puncture Site pCO2 pO2 Base Excess O2 Saturation ABG pH ABG HCO3 ABG O2 Sat (Measured) Irwin Test A-a Gradient a/A Ratio Hemoglobin Carboxyhemoglobin Methemoglobin Temperature POC O2 Flow Rate Sodium Potassium Chloride Carbon Dioxide Anion Gap BUN Creatinine Estimated GFR Glucose Lactic Acid Calcium Total Bilirubin AST ALT Alkaline Phosphatase Troponin I < 0.012 NT-Pro-B Natriuret Pep 107 Serum Total Protein Albumin Influenza Type A Ag NEGATIVE Influenza Type B Ag NEGATIVE RSV (PCR) NEGATIVE SARS-CoV-2 (PCR) NEGATIVE 06/04/22 06/04/22 21:39 21:39 WBC 25.5 H* RBC 5.05 Hgb 15.9 Hct 49.2 MCV 97.4 MCH 31.5 MCHC 32.3 RDW 13.3 Plt Count 289 MPV 10.6 Gran % Immature Gran % (Auto) Nucleat RBC Rel Count Eos # (Auto) Immature Gran # (Auto) Absolute Lymphs (auto) Absolute Monos (auto) Absolute Nucleated RBC Lymphocytes % Monocytes % Eosinophils % Basophils % Absolute Granulocytes Segmented Neutrophils 75 H Lymphocytes (Manual) 3 L Monocytes (Manual) 6 Eosinophils (Manual) 15 H Basophils (Manual) 1 Basophils # Platelet Estimate NORMAL RBC Morphology NORMAL PT INR APTT D-Dimer Puncture Site pCO2 pO2 Base Excess O2 Saturation ABG pH ABG HCO3 ABG O2 Sat (Measured) Irwin Test A-a Gradient a/A Ratio Hemoglobin Carboxyhemoglobin Methemoglobin Temperature POC O2 Flow Rate Sodium 140 Potassium 4.7 Chloride 102 Carbon Dioxide 25 Anion Gap 18.1 H BUN 14 Creatinine 1.16 Estimated GFR > 60.0 Glucose 155 H Lactic Acid Calcium 9.9 Total Bilirubin 1.10 AST 36 ALT 22 Alkaline Phosphatase 105 Troponin I NT-Pro-B Natriuret Pep Serum Total Protein 9.3 H Albumin 4.9 Influenza Type A Ag Influenza Type B Ag RSV (PCR) SARS-CoV-2 (PCR) Orders (Last 24 hours) Category Date Time Status Bedrest ROUTINE Activity 06/05/22 01:41 Completed Up Ad Nessa TOLERATED Activity 06/05/22 04:21 Active Call Admit Doctor for Orders ON ADMISSION Care 06/05/22 01:41 Active Code Status Order ROUTINE Care 06/05/22 01:40 Active IV Care Q6H Care 06/05/22 01:40 Active IV Insertion STAT Care 06/04/22 21:25 Completed IV Insertion-2nd Peripheral STAT Care 06/04/22 21:[address] in Observation ROUTINE Care 06/05/22 01:40 Active Telemetry q6h Care 06/05/22 01:40 Active Vital Signs Q4H Care 06/05/22 01:40 Completed Heart-Healthy Diet Diet 06/05/22 Breakfast Active CHEST 1 VIEW (PORTABLE) Stat Exams 06/04/22 21:37 Completed CHEST WITH CONTRAST [CT] Stat Exams 06/04/22 23:14 Completed ABG [ARTERIAL BLOOD GASES] Stat Lab 06/04/22 23:33 Completed BMP AM.LAB Lab 06/06/22 04:00 Ordered CBC W DIFF AM.LAB Lab 06/05/22 05:04 Completed CBC W DIFF Stat Lab 06/04/22 21:39 Completed CMP Stat Lab 06/04/22 21:39 Completed COVID/FLU/RSV Panel Stat Lab 06/04/22 21:50 Completed D-DIMER QUANTITATIVE Stat Lab 06/04/22 21:39 Completed Lactic Acid Routine Lab 06/05/22 05:10 Completed Lactic Acid Stat Lab 06/04/22 22:00 Completed Lactic Acid Stat Lab 06/05/22 00:11 Completed Manual Differential NC Stat Lab 06/04/22 21:39 Completed NT PRO BNPII Stat Lab 06/04/22 21:39 Completed PROTIME WITH INR Stat Lab 06/04/22 21:39 Completed PTT Stat Lab 06/04/22 21:39 Completed TROPONIN Q4H Lab 06/04/22 21:39 Completed TROPONIN Q4H Lab 06/05/22 00:00 Completed Acetaminophen 325 mg [Tylenol 325 mg] Med 06/05/22 04:18 Active 650 mg PO Q6H PRN PRN Albuterol 2.5 mg/0.5 ml [PROVENTIL Solution 2.5 MG/0 Med 06/04/22 21:12 Discontinued .5 ML] 10 mg IH .STK-MED ONE Albuterol 2.5 mg/0.5 ml [PROVENTIL Solution 2.5 MG/0 Med 06/04/22 21:35 Discontinued .5 ML] 10 mg IH STAT ONE Albuterol 2.5 mg/3 ml Neb [Proventil 2.5 mg/3 ml Neb Med 06/05/22 08:48 Active ] 2.5 mg IH Q2H PRN PRN Albuterol 2.5 mg/3 ml Neb [Proventil 2.5 mg/3 ml Neb Med 06/05/22 03:00 Active ] 2.5 mg IH Q4HRT Albuterol Common Canister [Ventolin Common Canister* Med 06/05/22 04:01 Active ] 4 puff IH Q4H PRN PRN Bacitracin Zinc [Baciguent 30 gm] Med 06/05/22 14:00 Active See Dose Instructions TOP BID Ceftriaxone 1 GM/50 ML PREMIX* [ROCEPHIN 1 Gm-D5w 50 ml Med 06/05/22 01:37 Discontinued Bag] 1 g in 50 ml IV STAT Ceftriaxone 1 GM/50 ML PREMIX* [ROCEPHIN 1 Gm-D5w 50 ml Med 06/05/22 01:38 Discontinued Bag] 1 g in 50 ml IV UD Enoxaparin Sodium [Enoxaparin Sodium] Med 06/05/22 10:00 Active 40 mg SQ DAILY Lisinopril 10 mg [Zestril 10 MG] Med 06/05/22 10:00 Active 10 mg PO DAILY Loratadine 10 mg [Claritin 10 mg] Med 06/05/22 10:00 Active 10 mg PO DAILY Magnesium Sulfate in Water [Magnesium Sulf 2 G/50 ml Med 06/05/22 01:29 Discontinued Bag] 2 gm in 50 ml IV ONCE Magnesium Sulfate in Water [Magnesium Sulf 2 G/50 ml Med 06/05/22 01:38 Discontinued Bag] 2 gm in 50 ml IV UD Medication Intervention Med 06/05/22 14:00 Active 1 each MC .RN TO CHECK Methotrexate Sodium 2.5 mg [Trexall 2.5 mg] Med 06/05/22 13:45 Active 15 mg PO WEEKLY PRN Methylprednis Sod Succ 125 mg* [solu-MEDROL] Med 06/04/22 21:20 Discontinued 125 mg .ROUTE .STK-MED ONE Methylprednis Sod Succ 125 mg* [solu-MEDROL] Med 06/05/22 06:05 Discontinued 125 mg .ROUTE .STK-MED ONE Methylprednis Sod Succ 125 mg* [solu-MEDROL] 125 mg Med 06/05/22 06:00 Active Water For Injection,Sterile [Sterile H2O 10 ml] 2 ml IV Q6HT Methylprednis Sod Succ 125 mg* [solu-MEDROL] 125 mg Med 06/04/22 21:15 Discontinued Water For Injection,Sterile [Sterile H2O 10 ml] 2 ml IV STAT NaCl 0.9% 1000 ml [Sodium Chloride 0.9% 1000 ML] 1,000 Med 06/04/22 23:21 Discontinued ml .ROUTE UD NaCl 0.9% 1000 ml [Sodium Chloride 0.9% 1000 ML] 1,000 Med 06/05/22 01:45 Discontinued ml IV 100 mls/hr NaCl 0.9% 1000 ml [Sodium Chloride 0.9% 1000 ML] 1,000 Med 06/04/22 22:57 Discontinued ml IV 999 mls/hr NaCl 3Ml For Inhalation [Sodium Chloride 3 ML UD Med 06/04/22 21:12 Discontinued NEBULES] 12 ml IH .STK-MED ONE NaCl 3Ml For Inhalation [Sodium Chloride 3 ML UD Med 06/04/22 21:45 Discontinued NEBULES] 12 ml IH UD Ondansetron HCl 4 mg/2 ml [Zofran 4 MG/2 ML VIAL] Med 06/05/22 01:40 Discontinued 4 mg IV Q6H PRN PRN Pantoprazole 40 mg [Protonix 40 mg IV] Med 06/05/22 10:00 Discontinued 40 mg IV Q24H10 Terbutaline Sulfate 1 mg/ml [Brethine 1 mg/ml] Med 06/04/22 21:16 Discontinued 0.25 mg SQ STAT ONE Terbutaline Sulfate 1 mg/ml [Brethine 1 mg/ml] Med 06/04/22 21:20 Discontinued 1 mg .ROUTE .STK-MED ONE Triamcinolone Acetonide 0.1% [Kenalog 0.1% Ointment Med 06/05/22 14:00 Active *] See Dose Instructions TP BID Water For Injection,Sterile [Sterile H2O 10 ml] Med 06/04/22 21:19 Discontinued 10 ml IJ .STK-MED ONE Water For Injection,Sterile [Sterile H2O 10 ml] Med 06/05/22 06:05 Discontinued 10 ml IJ .STK-MED ONE Oxygen Nasal Cannula 5 lpm RT 06/05/22 16:33 Active Pulse Oximetry .spot check RT 06/05/22 01:42 Active Qualify for Home Oxygen ROUTINE RT 06/05/22 12:23 Active Respiratory Therapy Assessment DAILY RT 06/04/22 21:10 Active Transfer Order Routine Transfer 06/05/22 Completed Patient Care Notes (Last 24 hours) 06/05/22 00:59 Respiratory Note by David Lucio PT SATS WERE 97% ON 10LPM OXYMASK, HR 125, AND RR 22. Initialized on 06/05/22 00:59 - END OF NOTE Code(s): J45.902 - UNSPECIFIED ASTHMA WITH STATUS ASTHMATICUS
[2022-06-05] MEDS ORDERED: CLOBETASOL PROPIONATE TOP SCH (22:00)
[2022-06-05] MEDS ORDERED: BACITRACIN ZINC TOP SCH (22:00)
[2022-06-06] MEDS ORDERED: solu-MEDROL ONE (01:53)
[2022-06-06] MEDS: solu-MEDROL 125 MG, Sterile H2O 10 ml 2 ML IV SCH ×4 (02:10→07:44)
[2022-06-06] MEDS: PROVENTIL 2.5 MG/3 ML NEB IH SCH ×3 (03:12→10:34)
[2022-06-06 05:19] LABS: ANION GAP 12.8 MEQ/L (5-15); BLOOD UREA NITROGEN 18 mg/dL (9-20); CHLORIDE 104 mmol/L (98-107); Calcium 9.3 mg/dL (8.4-10.2); Carbon Dioxide 28 mmol/L (22-30); Creatinine 1 1.09 mg/dL (0.66-1.25); EST GLOMERULAR FILTRATION RATE > 60.0 ML/MIN; Glucose 148 mg/dL (74-106); Potassium 4.6 mmol/L (3.5-5.1); SODIUM 140 mmol/L (137-145)
[2022-06-06] MEDS: BACIGUENT 30 GM TOP SCH (09:32)
[2022-06-06] MEDS: CLARITIN 10 MG PO SCH (09:33)
[2022-06-06] MEDS: Zestril 10 MG PO SCH (09:33)
[2022-06-06] MEDS: ENOXAPARIN SODIUM SQ SCH (09:33)
[2022-06-06] MEDS: KENALOG 0.1% OINTMENT TP SCH (09:54)
[2022-06-06] MEDS ORDERED: ROCEPHIN 1 Gm-D5w 50 ml Bag** 1 G/50 ML IVPB IV SCH (10:00)
[2022-06-06 12:20] VITALS: BP 128/80; PULSE 109; O2SAT 93
--- NOTE | 2022-06-06 13:13 | PCM.DS ---
Discharge Summary Date of Admission: 06/05/22 02:24 Admitting Physician: KEISHA GILL MD Primary Care Provider: VIC THOMSON Allergies Allergies Penicillins Allergy (Mild, Verified 06/04/22 21:31) Rash Hospital Summary - Hospital Course Hospital Course: Chief Complaint Diagnosis status asthmaticus Admission Date Date 06/05/22 Allergies Allergy/AdvReac Type Severity Reaction Status Date / Time Penicillins Allergy Mild Rash Verified 06/04/22 21:31 Vital Signs (Last 24 hours) Temp Pulse Resp BP Pulse Ox 06/06/22 12:00 97.8 F 109 H 19 128/80 93 L 06/06/22 10:35 106 H 18 90 L 06/06/22 08:00 96.4 F 105 H 19 126/68 06/06/22 07:01 97 H 20 96 06/06/22 04:00 94 L 06/06/22 03:13 93 H 18 93 L 06/06/22 00:00 97.5 F 101 H 16 98/59 94 L 06/05/22 23:07 101 H 20 96 06/05/22 20:00 97.9 F 116 H 19 126/66 93 L 06/05/22 17:45 110 H 95 06/05/22 16:00 98.0 F 120 H 18 143/84 93 L 06/05/22 15:33 111 H 20 92 L 06/05/22 13:34 114 H 22 93 L Home Medications Medication Instructions Recorded Confirmed Last Taken Type Adalimumab [Humira Pen] 40 mg SQ UD 06/05/22 06/05/22 Unknown History Albuterol Sulfate [Albuterol 2 puffs IH Q4-6HPRN PRN 06/05/22 06/05/22 Unknown History Sulfate Hfa] Bacitracin Zinc 1 applic TOP BID 06/05/22 06/05/22 Unknown History Cetirizine HCl 10 mg PO DAILY 06/05/22 06/05/22 Unknown History Clobetasol Propionate Oint 1 gm TOP BID 06/05/22 06/05/22 Unknown History [Temovate 0.05% OINTMENT] Methotrexate Sodium 2.5 mg 6 tab PO WEEKLY 06/05/22 06/05/22 Unknown History [Trexall 2.5 mg] Levothyroxine Sodium 150 Mcg 125 mcg PO DAILY 06/06/22 06/06/22 Unknown History [Synthroid 150 Mcg] Current Medications Generic Name Dose Route Start Last Admin Trade Name Freq PRN Reason Stop Dose Admin Acetaminophen 650 mg 06/05/22 04:18 06/05/22 04:53 Acetaminophen 325 Mg Tablet PO 07/05/22 04:17 650 mg Q6H PRN PRN Administration PAIN AND/OR FEVER Albuterol Sulfate 2.5 mg 06/05/22 03:00 06/06/22 10:34 Albuterol Sulfate 2.5 Mg/3 Ml [facility] 07/05/22 02:59 2.5 mg Q4HRT FABIAN Administration Albuterol Sulfate 4 puff 06/05/22 04:01 Albuterol Common Canister Inhaler 07/05/22 04:00 Q4H PRN PRN SHORTNESS OF BREATH/WHEEZING Albuterol Sulfate 2.5 mg 06/05/22 08:48 06/05/22 13:30 Albuterol Sulfate 2.5 Mg/3 Ml [facility] 07/05/22 08:47 2.5 mg Q2H PRN PRN Administration SHORTNESS OF BREATH/WHEEZING Bacitracin Zinc 0 gm 06/05/22 14:00 06/06/22 09:32 Bacitracin Zinc 28 Gm Tube TOP 07/05/22 13:59 1 gm BID FABIAN Administration Methylprednisolone Sodium 0 mg 06/06/22 14:00 Succinate 80 mg/ Sterile Water IV 07/06/22 13:59 2 ml Q8HT FABIAN Enoxaparin Sodium 40 mg 06/05/22 10:00 06/06/22 09:33 Enoxaparin Sodium 40 Mg/0.4 Ml Syringe SQ 07/05/22 09:59 40 mg DAILY FABIAN Administration Ceftriaxone Sodium/Dextrose 1 g in 50 mls @ 100 mls/hr 06/06/22 10:00 06/06/22 10:29 Rocephin 1 Gm-D5w 50 Ml Bag IV 06/09/22 09:59 100 mls/hr Q24H10 FABIAN Administration Lisinopril 10 mg 06/05/22 10:00 06/06/22 09:33 Lisinopril 10 Mg Tablet PO 07/05/22 09:59 10 mg DAILY FABIAN Administration Loratadine 10 mg 06/05/22 10:00 06/06/22 09:33 Loratadine 10 Mg Tablet PO 07/05/22 09:59 10 mg DAILY FABIAN Administration Methotrexate 15 mg 06/05/22 13:45 Methotrexate Sodium 2.5 Mg Tablet PO 07/05/22 13:44 WEEKLY PRN Miscellaneous Information 1 each 06/05/22 14:00 Medication Intervention 1 Each Each 07/05/22 13:59 .RN TO CHECK FABIAN Triamcinolone Acetonide 0 gm 06/05/22 14:00 06/06/22 09:54 Triamcinolone Acetonide 15 Gm Oint TP 07/05/22 13:59 1 gm BID FABIAN Administration Discontinued Medications Generic Name Dose Route Start Last Admin Trade Name Freq PRN Reason Stop Dose Admin Albuterol Sulfate Confirm 06/04/22 21:12 Albuterol Solution 2.5 Mg/0.5 Ml Ud Solution Administered 06/04/22 21:13 Dose 10 mg IH .STK-MED ONE Albuterol Sulfate 10 mg 06/04/22 21:35 06/04/22 21:40 Albuterol Solution 2.5 Mg/0.5 Ml Ud Solution IH 06/04/22 21:36 10 mg STAT ONE Administration Methylprednisolone Sodium 0 mg 06/04/22 21:15 06/04/22 21:20 Succinate 125 mg/ Sterile IV 06/04/22 21:16 125 mg Water 2 ml STAT ONE Administration Methylprednisolone Sodium 0 mg 06/05/22 06:00 06/06/22 07:44 Succinate 125 mg/ Sterile IV 07/05/22 05:59 125 mg Water 2 ml Q6HT FABIAN Administration Sodium Chloride 1,000 mls @ 999 mls/hr 06/04/22 22:57 06/04/22 23:22 Sodium Chloride 0.9% 1000 Ml IV 06/04/22 23:57 999 mls/hr .Q1H1M STA Administration Sodium Chloride Confirm 06/04/22 23:21 Sodium Chloride 0.9% 1000 Ml Administered 06/04/22 23:22 Dose 1,000 mls @ ud .ROUTE .STK-MED ONE Magnesium Sulfate/Water 2 gm in 50 mls @ 100 mls/hr 06/05/22 01:29 06/05/22 01:42 Magnesium Sulf 2 G/50 Ml Bag IV 06/05/22 01:58 100 mls/hr ONCE ONE 100 mls/hr Administration Ceftriaxone Sodium/Dextrose 1 g in 50 mls @ 100 mls/hr 06/05/22 01:37 06/05/22 01:41 Rocephin 1 Gm-D5w 50 Ml Bag IV 06/05/22 02:06 100 mls/hr STAT STA 100 mls/hr Administration Magnesium Sulfate/Water Confirm 06/05/22 01:38 Magnesium Sulf 2 G/50 Ml Bag Administered 06/05/22 01:39 Dose 2 gm in 50 mls @ ud IV .STK-MED ONE Ceftriaxone Sodium/Dextrose Confirm 06/05/22 01:38 Rocephin 1 Gm-D5w 50 Ml Bag Administered 06/05/22 01:39 Dose 1 g in 50 mls @ ud IV .STK-MED ONE Sodium Chloride 1,000 mls @ 100 mls/hr 06/05/22 01:45 Sodium Chloride 0.9% 1000 Ml IV 07/05/22 01:44 .Q10H FABIAN Ceftriaxone Sodium/Dextrose 1 g in 50 mls @ 100 mls/hr 06/07/22 02:00 Rocephin 1 Gm-D5w 50 Ml Bag IV 06/10/22 01:59 Q24H10 FABIAN Methylprednisolone Sodium Succinate Confirm 06/04/22 21:20 Methylprednis Sod Succ 125 Mg/2 Ml Vial Administered 06/04/22 21:21 Dose 125 mg .ROUTE .STK-MED ONE Methylprednisolone Sodium Succinate Confirm 06/05/22 06:05 Methylprednis Sod Succ 125 Mg/2 Ml Vial Administered 06/05/22 06:06 Dose 125 mg .ROUTE .STK-MED ONE Methylprednisolone Sodium Succinate Confirm 06/06/22 01:53 Methylprednis Sod Succ 125 Mg/2 Ml Vial Administered 06/06/22 01:54 Dose 125 mg .ROUTE .STK-MED ONE Ondansetron HCl 4 mg 06/05/22 01:40 Ondansetron Hcl 4 Mg/2 Ml Vial IV 07/05/22 01:39 Q6H PRN PRN NAUSEA/VOMITING Pantoprazole Sodium 40 mg 06/05/22 10:00 Pantoprazole 40 Mg Vial IV 07/05/22 09:59 Q24H10 FABIAN Sodium Chloride Confirm 06/04/22 21:12 Sodium Cl For Inhalation 3 Ml Ud Nebule Administered 06/04/22 21:13 Dose 12 ml IH .STK-MED ONE Sodium Chloride 12 ml 06/04/22 21:45 06/04/22 21:40 Sodium Cl For Inhalation 3 Ml Ud Nebule IH 07/04/22 21:44 10 ml UD FABIAN Administration Sterile Water Confirm 06/04/22 21:19 Water For Injection,Sterile 10 Ml Vial Administered 06/04/22 21:20 Dose 10 ml IJ .STK-MED ONE Sterile Water Confirm 06/05/22 06:05 Water For Injection,Sterile 10 Ml Vial Administered 06/05/22 06:06 Dose 10 ml IJ .STK-MED ONE Terbutaline Sulfate 0.25 mg 06/04/22 21:16 06/04/22 21:21 Terbutaline Sulfate 1 Mg/Ml Vial SQ 06/04/22 21:17 0.25 mg STAT ONE Administration Terbutaline Sulfate Confirm 06/04/22 21:20 Terbutaline Sulfate 1 Mg/Ml Vial Administered 06/04/22 21:21 Dose 1 mg .ROUTE .STK-MED ONE Intake & Output (Last 24 hours) 06/04/22 06/05/22 06/06/22 06/07/22 11:59 11:59 11:59 11:59 Intake Total 480 960 Balance 480 960 Weight 87 kg Laboratory Results (Last 24 hours) 06/06/22 04:36 Sodium 140 Potassium 4.6 Chloride 104 Carbon Dioxide 28 Anion Gap 12.8 BUN 18 Creatinine 1.09 Estimated GFR > 60.0 Glucose 148 H Calcium 9.3 Orders (Last 24 hours) Category Date Time Status Discharge Routine Discharge 06/06/22 12:29 Ordered BMP AM.LAB Lab 06/06/22 04:36 Completed Bacitracin Zinc [Baciguent 30 gm] Med 06/05/22 14:00 Active See Dose Instructions TOP BID Ceftriaxone 1 GM/50 ML PREMIX* [ROCEPHIN 1 Gm-D5w 50 ml Med 06/06/22 10:00 Active Bag] 1 g in 50 ml IV Q24H10 Ceftriaxone 1 GM/50 ML PREMIX* [ROCEPHIN 1 Gm-D5w 50 ml Med 06/07/22 02:00 Discontinued Bag] 1 g in 50 ml IV Q24H10 Medication Intervention Med 06/05/22 14:00 Active 1 each MC .RN TO CHECK Methotrexate Sodium 2.5 mg [Trexall 2.5 mg] Med 06/05/22 13:45 Active 15 mg PO WEEKLY PRN Methylprednis Sod Succ 125 mg* [solu-MEDROL] Med 06/06/22 01:53 Discontinued 125 mg .ROUTE .STK-MED ONE Methylprednis Sod Succ 125 mg* [solu-MEDROL] 80 mg Med 06/06/22 14:00 Active Water For Injection,Sterile [Sterile H2O 10 ml] 2 ml IV Q8HT Triamcinolone Acetonide 0.1% [Kenalog 0.1% Ointment Med 06/05/22 14:00 Active *] See Dose Instructions TP BID Oxygen Nasal Cannula 5 lpm RT 06/05/22 16:33 Active Qualify for Home Oxygen ROUTINE RT 06/05/22 12:23 Active Patient Care Notes (Last 24 hours) 06/06/22 10:03 Case Management Note by Farzaneh Chamberlain S/W PATIENT- HE DENIES ANY NEW NEEDS AT TIME OF DC. HE REPORTS HE HAS A PULSE OX AT HOME. OXYGEN HAS BEEN ORDERED THRU [facility]. HE REPORTS HIS PARENTS CAN ASSIST HIM AFTER DC IF NEEDED Initialized on 06/06/22 10:03 - END OF NOTE 06/06/22 09:15 Case Management Note by Farzaneh Chamberlain Addendum entered by Farzaneh Chamberlain 06/06/22 09:23: PATIENT WILL BE SENT HOME WITH [facility] PORT[facility] FROM [facility]. DELIVERY INSTRUCTIONS ADDED TO PATIENT'S DC INSTRUCTIONS Original Note: HOME OXYGEN ORDERED THRU [facility]- DR. THOMSON'S OFFICE HAD ALREADY INITIATED ORDER TO THEM FROM THE OFFICE- THIS JUST NEEDED UPDATED WITH A NEW ORDER AND A QUALIFICATION Initialized on 06/06/22 09:15 - END OF NOTE 06/06/22 07:17 Respiratory Note by Katie Camacho PT'S O2 SAT ON ROOM AIR WHILE AT REST WAS 86%. PT WAS PLACED ON 2LPM VIA NASAL CANNULA BUT O2 SAT ONLY INCREASED TO 88%. OXYGEN WAS THEN INCREASED TO 3LPM VIA NASAL CANNULA. O2 SAT INCREASED TO 92%. Initialized on 06/06/22 07:17 - END OF NOTE Patient and his are informed about possible Methtrexate related pulmonary toxicity causing his respiratory problems, Outpatient pulmonary consult with Dr Cesar Cordoba done. Patient is advised to follow up with Dr Ana M Garza, - Vitals & Intake/Output Vital Signs: Vital Signs Temperature 97.8 F 06/06/22 12:00 Pulse Rate 109 H 06/06/22 12:00 Respiratory Rate 19 06/06/22 12:00 Blood Pressure 128/80 06/06/22 12:00 O2 Sat by Pulse Oximetry 93 L 06/06/22 12:00 Intake & Output: Intake & Output 06/04/22 06/05/22 06/06/22 06/07/22 11:59 11:59 11:59 11:59 Intake Total 480 960 Balance 480 960 Weight 87 kg - Lab Result Diagrams: 06/05/22 05:04 06/06/22 04:36 Lab Results-Last 24 Hrs: Lab Results-Last 24 Hours 06/06/22 Range/Units 04:36 Sodium 140 (137-145) mmol/L Potassium 4.6 (3.5-5.1) mmol/L Chloride 104 (98-107) mmol/L Carbon Dioxide 28 (22-30) mmol/L Anion Gap 12.8 (5-15) MEQ/L BUN 18 (9-20) mg/dL Creatinine 1.09 (0.66-1.25) mg/dL Estimated GFR > 60.0 ML/MIN Glucose 148 H (74-106) mg/dL Calcium 9.3 (8.4-10.2) mg/dL - Radiology Exams Ordered Rad Exams-Entire Visit: Radiology Procedures Category Date Time Status CHEST 1 VIEW (PORTABLE) Stat Exams 06/04/22 21:37 Completed CHEST WITH CONTRAST [CT] Stat Exams 06/04/22 23:14 Completed - Procedures and Test Procedures and Tests throughout Hospitalization: Therapy Orders & Screens 06/04/22 21:10 Respiratory Therapy Assessment DAILY Comment: 06/05/22 12:23 Qualify for Home Oxygen ROUTINE Comment: Diagnosis: status asthmaticus 06/05/22 16:33 Oxygen Nasal Cannula 5 lpm Comment: Diagnosis: status asthmaticus Discharge Exam General Appearance: no apparent distress, alert Neurologic Exam: alert, oriented x 3, cooperative, normal mood/affect, nml cerebellar function, sensation nml, No motor deficits Eye Exam: PERRL, EOMI, eyes nml inspection Ears, Nose, Throat Exam: normal ENT inspection, pharynx normal, moist mucous membranes Neck Exam: normal inspection, non-tender, supple, full range of motion Respiratory Exam: diminished breath sounds, wheezing, No respiratory distress Cardiovascular Exam: regular rate/rhythm, normal heart sounds Gastrointestinal/Abdomen Exam: soft, No tenderness, No mass Male Genitalia Exam: deferred Rectal Exam: deferred Back Exam: normal inspection, normal range of motion, No CVA tenderness, No vertebral tenderness Extremity Exam: normal inspection, normal range of motion Skin Exam: normal color, warm, dry Final Diagnosis/Problem List - Final Discharge Diagnosis/Problem (1) Status asthmaticus Current Visit: Yes Status: Resolved Code(s): J45.902 - UNSPECIFIED ASTHMA WITH STATUS ASTHMATICUS (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 Code(s): J98.4 - OTHER DISORDERS OF LUNG; T45.1X5A - ADVERSE EFFECT OF ANTINEOPLASTIC AND IMMUNOSUP DRUGS, INIT (3) Methotrexate-induced pneumonitis Current Visit: Yes Status: Resolved Code(s): J70.4 - DRUG-INDUCED INTERSTITIAL LUNG DISORDERS, UNSPECIFIED; T45.1X5A - ADVERSE EFFECT OF ANT INEOPLASTIC AND IMMUNOSUP DRUGS, INIT (4) Psoriatic arthritis Current Visit: Yes Status: Chronic Code(s): L40.50 - ARTHROPATHIC PSORIASIS, UNSPECIFIED (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 Code(s): R06.09 - OTHER FORMS OF DYSPNEA; U09.9 - POST COVID-19 CONDITION, UNSPECIFIED - Discharge Discharge Date: 06/06/22 Disposition: Home, Self-Care Condition: Stable Prescriptions: No Action Lisinopril 10 mg [Zestril 10 MG] 10 mg PO DAILY Clobetasol Propionate Oint [Temovate 0.05% OINTMENT] 1 gm TOP BID Adalimumab [Humira Pen] 40 mg SQ UD Methotrexate Sodium 2.5 mg [Trexall 2.5 mg] 6 tab PO WEEKLY Albuterol Sulfate [Albuterol Sulfate Hfa] 2 puffs IH Q4-6HPRN PRN PRN Reason: Shortness Of Breath/Wheezing Cetirizine HCl 10 mg PO DAILY Bacitracin Zinc 1 applic TOP BID Levothyroxine Sodium 150 Mcg [Synthroid 150 Mcg] 125 mcg PO DAILY Additional Instructions: WEAR 3L/NC AT ALL TIMES. CALL [facility] WHEN YOU GET READY TO LEAVE [facility] AT [phone] SO THEY CAN MEET YOU AT YOUR HOME TO DELIVER YOUR HOME CONCENTRATOR Follow up with: VIC THOMSON [Primary Care Provider] - CESAR CORDOBA [ACTIVE STAFF] - Call for Appointment ANA M GARZA MD [NON-STAFF PHY W/O PRIVILEGES] - Call for Appointment
[2022-06-06] MEDS ORDERED: solu-MEDROL 80 MG, Sterile H2O 10 ml 2 ML IV SCH ×2 (14:00)
[2022-06-07] MEDS ORDERED: ROCEPHIN 1 Gm-D5w 50 ml Bag** 1 G/50 ML IVPB IV SCH (02:00)
== END 2022-06-06 15:30 | disposition home or self-care (01) ==
LOC: ED 21:07 → MED SURG 06-05 02:24
PROVIDERS: ADMIT Internal Medicine; ATTEND General Practice
DX: J45.902 Unspecified asthma with status asthmaticus (principal); J98.4 Other disorders of lung; T45.1X5A Adverse effect of antineoplastic and immunosuppressive drugs, initial encounter; J70.4 Drug-induced interstitial lung disorders, unspecified; L40.50 Arthropathic psoriasis, unspecified; I10 Essential (primary) hypertension; R06.09 Other forms of dyspnea; U09.9 Post COVID-19 condition, unspecified; Z79.899 Other long term (current) drug therapy; Z20.828 Contact with and (suspected) exposure to other viral communicable diseases
CPT/HCPCS: 0241U; 36000; 36415; 36600; 71045; 71260; 80048; 80053; 82375; 82803; 83605; 83880; 84484; 85025; 85379; 85610; 85730; 93005; 93268; 94640; 94760; 96365; 96367; 96372; 96374; 99285; 99291; G0378; J0696; J1650; J2930; J7609; A9270-GY; J3475